=== PATIENT | male | born 1990 | race Caucasian/White ===

== ENCOUNTER 2017-07-05 09:31 | Emergency (ER) | payer BC ==
[2017-07-05 09:59] VITALS: BP 150/82
[2017-07-05] MEDS ORDERED: Albuterol/Ipratropium NEB.SOL* Albuterol 2.5 MG/Ipratropium 0.5 MG 3 ML INH ONE (10:42)
--- NOTE | 2017-07-05 10:42 | UC ---
Respiratory Complaint HPI - HPI Summary HPI Summary: quit smoking the end of May---has had cough and wheeze and sinus pressure , no fevers---has been taking Mucinex and coricedin with out relief - History of Current Complaint Chief Complaint: UCGeneralIllness Stated Complaint: CONGESTION Time Seen by Provider: 07/05/17 10:36 Hx Obtained From: Patient Onset/Duration: Gradual Onset, Lasting Weeks - 3 Timing: Constant Severity Initially: Mild Severity Currently: Moderate Character: Cough: Nonproductive Aggravating Factors: Nothing Alleviating Factors: Nothing Associated Signs And Symptoms: Positive: Wheezing, URI, Nasal Congestion, Sinus Discomfort - Allergies/Home Medications Allergies/Adverse Reactions: Allergies Allergy/AdvReac Type Severity Reaction Status Date / Time Penicillins Allergy Rash Verified 07/05/17 09:59 Sulfa Allergy Rash Uncoded 07/05/17 09:59 Home Medications: Home Medications Aspirin TAB* [Aspirin 325 MG TAB*] 2 tab PO PRN 07/05/17 [History] Torsemide [Demadex 10 MG] 1 tab PO DAILY 07/05/17 [History Confirmed 07/05/17] metFORMIN* [Glucophage 500 MG TAB *] 1 tab PO BID 07/05/17 [History Confirmed ] PMH/Surg Hx/FS Hx/Imm Hx Previously Healthy: No Endocrine History: Diabetes Cardiovascular History: Hypertension - Surgical History Surgical History: Yes Surgery Procedure, Year, and Place: 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 - Family History Known Family History: Positive: Hypertension - Social History Occupation: Employed Full-time Lives: With Family Alcohol Use: None Alcohol Amount: 2-3 beers at night Substance Use Type: None Smoking Status (MU): Former Smoker Type: Smokeless Tobacco Amount Used/How Often: FORMER SMOKER Length of Time of Smoking/Using Tobacco: 06/10/17 Have You Smoked in the Last Year: Yes - Immunization History Most Recent Tetanus Shot: Should be UTD Review of Systems Constitutional: Negative Skin: Negative Eyes: Negative ENT: Sinus Congestion, Sinus Pain/Tenderness Respiratory: Cough Cardiovascular: Negative Gastrointestinal: Negative Genitourinary: Negative Motor: Negative Neurovascular: Negative Musculoskeletal: Negative Neurological: Negative Psychological: Negative Is Patient Immunocompromised?: No All Other Systems Reviewed And Are Negative: Yes Physical Exam Triage Information Reviewed: Yes Appearance: Well-Appearing, No Pain Distress, Obese Vital Signs: Initial Vital Signs Temp 98 F 07/05/17 09:54 Pulse 76 07/05/17 09:54 Resp 20 07/05/17 09:54 BP 150/82 07/05/17 09:54 Pulse Ox 98 07/05/17 09:54 Vital Signs Reviewed: Yes Eye Exam: Normal Eyes: Positive: Conjunctiva Clear ENT Exam: Normal ENT: Positive: Normal ENT inspection, Hearing grossly normal, Pharynx normal, TMs normal, Sinus tenderness, Uvula midline. Negative: Nasal congestion, Tonsillar swelling, Tonsillar exudate, Trismus, Muffled voice, Hoarse voice, Dental tenderness Dental Exam: Normal Neck exam: Normal Neck: Positive: Supple, Nontender Respiratory Exam: Normal Respiratory: Positive: Chest non-tender, Lungs clear, Normal breath sounds, No respiratory distress, No accessory muscle use Cardiovascular Exam: Normal Cardiovascular: Positive: RRR, No Murmur, Pulses Normal, Brisk Capillary Refill Musculoskeletal Exam: Normal Musculoskeletal: Positive: Strength Intact, ROM Intact, No Edema Neurological Exam: Normal Neurological: Positive: Alert, Muscle Tone Normal Psychological Exam: Normal Skin Exam: Normal UC Diagnostic Evaluation - Laboratory O2 Sat by Pulse Oximetry: 98 Re-Evaluation - Re-Evaluation First Eval Change: Improved - chest feels less tight after neb---increase aeration Respiratory Course/Dx - Course Course Of Treatment: albuterol, flonase, zithromax, increase fluids, rest follow with pcp - Differential Dx/Diagnosis Provider Diagnoses: Acute Rhinosinusitis Discharge - Discharge Plan Condition: Stable Disposition: HOME Prescriptions: Albuterol HFA INHALER* [Ventolin HFA Inhaler*] 2 puff INH Q4H PRN #1 mdi PRN Reason: cough/wheeze Azithromycin TAB* [Zithromax TAB (Z-DANIS) 250 mg #6 tabs] 2 tab PO .TODAY, THEN 1 DAILY #1 danis Fluticasone NASAL SPRAY 50MCG* [Flonase NASAL SPRAY 50MCG*] 2 spray BOTH NARES DAILY #1 btl Patient Education Materials: Sinusitis (ED), Hypertension (ED), How to Use a Metered-Dose Inhaler and a Spacer (ED), How to Use Nasal [place] (ED) Forms: *Work Release Referrals: Paola Aguirre [Primary Care Provider] - 2 Weeks
== END 2017-07-05 11:36 | disposition home or self-care (01) ==
LOC: UCEAST 09:31
DX: J01.90 Acute sinusitis, unspecified (principal); Z87.891 Personal history of nicotine dependence; E11.9 Type 2 diabetes mellitus without complications; Z79.84 Long term (current) use of oral hypoglycemic drugs
CPT/HCPCS: 99212; A9270-GY; G0463

== ENCOUNTER 2019-10-21 08:42 | Emergency (ER) | payer SELFPAY ==
--- OUTSIDE RECORDS SUMMARY | 2019-10-21 08:51 | XMS REPORT | Continuity of Care Document ---
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 -- followed by endocrine Social History Type Date Description Comments Sex Unknown Tobacco Use Start: Unknown Current Cigarette Smoker QUIT 08/2015 BUT CHEWS 5-10 Cigarettes Daily STILL ( 1/2 CAN /DAY).12/30 1/2 PPD NOW BUT NOT CHEWING ETOH Use Denies alcohol use Tobacco Use Start: Unknown End: Patient is a former smoker QUIT IN MAY 2017 Unknown Tobacco Use Start: Unknown Chews Smoking Status Reviewed: 08/24/19 Chews Allergies, Adverse Reactions, Alerts Active Allergies Reaction Severity Comments Date Penicillins Rash 07/03/2010 Sulfa Drugs Rash 07/03/2010 Medications Active Medications SIG Qnty Indications Ordering Date Provider Esomeprazole Magnesium 1 by mouth 90caps K21.9 Paola Aguirre 04/21/2019 every day JONATHAN Johnson MS 40mg Capsules DR Clonidine HCL 1 by mouth 180tabs I10 Paola Aguirre 04/21/2019 0.2mg twice a day For JONATHAN Johnson MS Tablets BP And Anxiety Amlodipine take one 90caps I10 Paola Aguirre 01/11/2019 Besylate/Benazepril capsule by JONATHAN Johnson MSP Hydrochloride mouth every day 10-40mg Capsules Onetouch Delica Use To Test 100units R73.01 Paola Aguirre 09/22/2018 Lancets Fine 30G Once A Day JONATHAN Johnson [facility] 30G Mis E88.81 Carvedilol take one tablet by 180tabs I10 Paola Aguirre, 06/07/2018 25mg Tablets mouth twice a day RN [facility] BOX Vitamin D-3 1 by mouth every Unknown 5000Unit day Tablets Torsemide Take One-Half 30tabs I10 Paola Aguirre, 10mg Tablets Tablet By Mouth RN [facility] Every Day Immunizations CPT Code Status Date Vaccine Lot # [id number] Given 06/10/2017 Tdap (Adacel) Ages 7 And Above Only [id number] Given 07/22/2007 Afluria Or Fluvirin Flu Vac Intramuscular [id number] Given 07/22/2007 Afluria Or Fluvirin Flu Vac Intramuscular [id number] Refused 06/10/2017 Influenza Vac, Quadrivalent, Split, 0.5mL Dosage, Im Use Vital Signs Date Vital Result Comment 08/24/2019 9:27am Weight 351.00 lb Heart Rate 67 /min BP Systolic 160 mmHg BP Diastolic 85 mmHg Height 74 inches 6'2" BMI (Body Mass Index) 45.1 kg/m2 04/21/2019 9:14am Weight 352.00 lb Heart Rate 63 /min BP Systolic 153 mmHg BP Diastolic 90 mmHg Height 74 inches 6'2" BMI (Body Mass Index) 45.2 kg/m2 Results Test Acquired Date Facility Test Result H/L Range Note Laboratory test 08/24/2019 [facility] Hemoglobin A1c <pending> finding Hemoglobin A1c 04/21/2019 [facility] Hemoglobin A1c 5.7 % 4.1-5.9 Estimated Average Glucose Calc 117 mg/dL 71-140 Lipid Treatment 04/21/2019 [facility] Cholesterol 155 mg/dL 50-199 Triglycerides 78 mg/dL 30-200 HDL 36 mg/dL 29-71 1 Chol/ HDL Ratio 4.3 ratio 4.0-6.7 VLDL 16 mg/dL 2-29 LDL (Calc) 103 mg/dL High 20-99 2 Alt 24 U/L 3-42 Ast 13 U/L 8-42 Comprehensive Met Panel-[facility] 04/21/2019 [place] Sodium 139 mmol/L 135- 146 3 Potassium 4.8 mmol/L 3.5-5.2 Chloride# 101 mmol/L 97-110 4 Carbon Dioxide 31 mmol/L 24-34 Calcium 9.8 mg/dL 8.5-10.5 5 Glucose 103 mg/dL 70-105 BUN 12 mg/dL 6-26 Creatinine 0.8 mg/dL 0.5-1.4 Total Protein 7.3 g/dL 6.0-8.0 Albumin 4.4 g/dL 3.6-4.9 Globulin 2.9 g/dL 2.0-3.5 A/G Ratio 1.5 Ratio 1.0-2.2 Total Bilirubin 0.6 mg/dL 0.1-1.3 Alkaline Phosphatase 66 U/L 24-140 Alt 24 U/L 3-42 Ast 13 U/L 8-42 Anion Gap 7 mmol/L 5-15 6 Female Egfr 94 >60 7 Male Egfr 117 >60 8 1 Per NCEP ATP III Guidelines: Results lower than 40 mg/dL are suggestive of increased risk for coronary artery disease. Results > or = to 60 mg/dL are considered a negative risk factor. 2 Per NCEP ATP III Guidelines: Normal Population <130 Patients with medical conditions: CHD/DM Optimal: <100 Borderline high: 130-159 High: 160-189 Very high: >189 3 Updated reference range on new analyzer 4 Updated reference range on new analyzer 5 Updated reference range 12-15-2018 6 Updated Reference Range 7 Concerning GFR Guidelines for Americans: Normal function or mild renal disease, if clinically at risk: >/= 60 mL/min Moderately decreased: 30-59 Severely decreased: 15-29 Renal failure: <15 There is reduced accuracy above 60ml/min/1.73 m squared, but the numeric value may be clinically useful in the near 60 range 8 Concerning GFR Guidelines: Normal function or mild renal disease, if clinically at risk: >/= 60 mL/min Moderately decreased: 30-59 Severely decreased: 15-29 Renal failure: <15 There is reduced accuracy above 60ml/min/1.73 m squared, but the numeric value may be clinically useful in the near 60 range Glomerular Filtration Rate (GFR) is estimated based on the CKD-EPI equation, which assumes a steady state for creatinine as recommended by the National Kidney Disease Education Program in conjunction with the National Institutes of Health and the National Kidney Foundation. Clinical conditions in which it may be necessary to measure GFR by using clearance methods include extremes of age and body size, severe malnutrition or obesity, diseases of skeletal muscle, paraplegia or quadriplegia, vegetarian diet, rapidly changing kidney function, and calculation of the dose of potentially toxic drugs that are excreted by the kidneys. Procedures Date Code Description Status 04/21/2019 15742 Electrocardiogram Complete Completed Medical Devices Description No Information Available Encounters Type Date Location Provider Dx Diagnosis Office Visit 04/21/2019 Paola Gallegos, R73.01 Impaired fasting 9:40a RN [facility] glucose I10 Essential (primary) hypertension E78.2 Mixed hyperlipidemia E66.01 Morbid (severe) obesity due to excess calories K21.9 Gastro-esophageal reflux disease without esophagitis M25.572 Pain in LEFT ankle and joints of LEFT foot M25.512 Pain in LEFT shoulder F41.1 Generalized anxiety disorder Z68.42 Body mass index (BMI) 45.0-49.9, adult Assessments Date Code Description Provider 08/24/2019 E78.2 Mixed hyperlipidemia Paola Aguirre RN [facility] 08/24/2019 I10 Essential (primary) hypertension Paola Aguirre, JONATHAN [facility] 08/24/2019 K21.9 Gastro-esophageal reflux disease Paola Aguirre, RN [facility] without esophagitis 08/24/2019 R73.01 Impaired fasting glucose Paola Aguirre, JONATHAN [facility] 08/24/2019 Z68.42 Body mass index (BMI) 45.0-49.9, Paola Aguirre, JONATHAN [facility] adult 08/24/2019 R42 Dizziness and giddiness Paola Aguirre, JONATHAN [facility] 08/24/2019 M25.512 Pain in LEFT shoulder Paola Aguirre, JONATHAN [facility] 04/21/2019 R73.01 Impaired fasting glucose Paola Aguirre, JONATHAN [facility] 04/21/2019 I10 Essential (primary) hypertension Paola Aguirre, JONATHAN [facility] 04/21/2019 E78.2 Mixed hyperlipidemia Paola Aguirre, JONATHAN [facility] 04/21/2019 E66.01 Morbid (severe) obesity due to excess Paola Aguirre RN [facility] calories 04/21/2019 K21.9 Gastro-esophageal reflux disease Paola Aguirre RN [facility] without esophagitis 04/21/2019 M25.572 Pain in LEFT ankle and joints of LEFT Paola Aguirre RN [facility] foot 04/21/2019 M25.512 Pain in LEFT shoulder Paola Aguirre RN [facility] 04/21/2019 F41.1 Generalized anxiety disorder Paola Aguirre RN [facility] 04/21/2019 Z68.42 Body mass index (BMI) 45.0-49.9, Paola Aguirre RN [facility] adult 04/21/2019 R73.01 Impaired fasting glucose [facility] 04/21/2019 E78.2 Mixed hyperlipidemia [facility] Plan of Treatment Future Appointment(s):02/22/2020 8:00 am - Paola Aguirre RN [facility] at [facility]/24/2019 - Paola Aguirre RN [facility] FNPE78.2 Mixed [id number] Essential (primary) wemdhrqemrfcU54.9 Gastro-esophageal reflux disease without behwwkryzkfH28.01 Impaired fasting glucoseFollow up:6 MONTHS BAYLEE( FASTING ( OR CAN SCHEDULE A PE IF THAT IS COVERED BY INSURANCE ,Z68.42 Body mass index (BMI) 45.0-49.9, [id number] Dizziness and yahktxatzK57.512 Pain in LEFT shoulder Functional Status Description No Information Available Mental Status Description No Information Available Referrals Refer to Reason for Referral Status Appt Date [facility] CONSULT FOR CHRONIC LEFT LAT ANKLE Closed 04/22/2019 PAIN AND FOOT PAIN 04/21-SCHEDULED WITH [facility] WHILE IN OFFICE SO IS DEF AWARE OF APPT-AA [address] [facility] [place] [place] [address] [phone]
--- NOTE | 2019-10-21 09:43 | UC ---
Respiratory Complaint HPI - HPI Summary HPI Summary: 29 yo male presents with flu-like symptoms. He tells me that for the last 2 days he has had body aches, dry cough, fatigue, and sinus congestions. Reports temp of 103F yesterday. Has been taking mucinex and ibuprofen with good relief. Did not get a flu shot this year. He does not smoke - quit 1 year ago. Denies sore throat, SOB, chest pain, abdominal pain, n/v - History of Current Complaint Chief Complaint: UCGeneralIllness Stated Complaint: HEAD / CHEST CONGESTION COUGH Time Seen by Provider: 10/21/19 09:43 Hx Obtained From: Patient Onset/Duration: Sudden Onset Severity Initially: Mild Severity Currently: Mild Pain Intensity: 3 Pain Scale Used: 0-10 Numeric - Allergies/Home Medications Allergies/Adverse Reactions: Allergies Allergy/AdvReac Type Severity Reaction Status Date / Time Penicillins Allergy Rash Verified 10/21/19 08:54 Sulfa Allergy Rash Uncoded 10/21/19 08:54 Home Medications: Home Medications Vitamin D 1 tab PO DAILY 11/01/13 [History Confirmed 10/21/19] Amlodipine Besylate/Benazepril [Lotrel 10-40 mg Capsule] 1 tab PO BEDTIME [History Confirmed 10/21/19] Ibuprofen TAB* [Motrin TAB* 600 MG] 600 mg PO Q6H PRN #30 tab 04/01/16 [Rx Confirmed 10/21/19] Aspirin TAB* [Aspirin 325 MG TAB*] 2 tab PO PRN 07/05/17 [History] Fluticasone NASAL SPRAY 50MCG* [Flonase NASAL SPRAY 50MCG*] 2 spray BOTH NARES DAILY #1 btl 07/05/17 [Rx Confirmed 10/21/19] Carvedilol TAB* [Coreg TAB*] 1 tab PO DAILY 10/21/19 [History Confirmed 10/21/19 ] cloNIDine TAB* [Catapres 0.1 MG TAB*] 0.2 mg PO DAILY 10/21/19 [History Confirmed 10/21/19] PMH/Surg Hx/FS Hx/Imm Hx Cardiovascular History: Hypertension - Surgical History Surgical History: Yes Surgery Procedure, Year, and Place: 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 - Family History Known Family History: Positive: Hypertension - Social History Lives: With Family Alcohol Use: None Alcohol Amount: 2-3 beers at night Substance Use Type: None Smoking Status (MU): Former Smoker Type: Smokeless Tobacco Amount Used/How Often: FORMER SMOKER Length of Time of Smoking/Using Tobacco: 06/10/17 Have You Smoked in the Last Year: Yes - Immunization History Most Recent Tetanus Shot: Should be UTD Review of Systems All Other Systems Reviewed And Are Negative: No Constitutional: Positive: Fever, Fatigue, Other - Body aches Skin: Positive: Negative Eyes: Positive: Negative ENT: Positive: Sinus Congestion, Sinus Pain/Tenderness Respiratory: Positive: Cough Cardiovascular: Positive: Negative Gastrointestinal: Positive: Negative Neurovascular: Positive: Negative Neurological/Mental Status: Positive: Negative Psychological: Positive: Negative Physical Exam - Summary Physical Exam Summary: GENERAL: NAD. WDWN. No pain distress. SKIN: No rashes, sores, lesions, or open wounds. HEENT: Head: AT/NC Eyes: EOM intact. Conjunctiva clear without inflammation or discharge. Ears: Hearing grossly normal. TMs intact, no bulging, erythema, or edema. Nose: Nasal mucosa pink and moist. NTTP maxillary and frontal sinus. Throat: Posterior oropharynx without exudates, erythema, or tonsillar enlargement. Uvula midline. NECK: Supple. Nontender. No lymphadenopathy. CHEST: CTAB. No r/r/w. No accessory muscle use. Breathing comfortably and in no distress. CV: RRR. Pulses intact. Cap refill <2seconds NEURO: Alert. PSYCH: Age appropriate behavior. Triage Information Reviewed: Yes Vital Signs: Initial Vital Signs Temp 98 F 10/21/19 08:51 Pulse 91 10/21/19 08:51 Resp 17 10/21/19 08:51 BP 174/105 10/21/19 08:51 Pulse Ox 99 10/21/19 08:51 Vital Signs: Temp Pulse Resp BP Pulse Ox 98 F 91 17 142/80 99 10/21/19 08:51 10/21/19 08:51 10/21/19 08:51 10/21/19 09:59 10/21/19 08:51 Laboratory Tests 10/21/19 09:58 Influenza B (Rapid) Positive H Vital Signs Reviewed: Yes Respiratory Course/Dx - Course Course Of Treatment: POC flu positive. Advised supportive care. - Differential Dx/Diagnosis Provider Diagnosis: Influenza Discharge ED - Sign-Out/Discharge Documenting (check all that apply): Patient Departure All imaging exams completed and their final reports reviewed: No Studies - Discharge Plan Condition: Stable Disposition: HOME Patient Education Materials: Influenza (ED) Forms: *Work Release Referrals: Paola Aguirre [Primary Care Provider] - Additional Instructions: If you develop a fever, shortness of breath, chest pain, new or worsening symptoms - please call your PCP or go to the ED immediately. Your blood pressure was high at todays visit. Please see your primary provider within 4 weeks for recheck and re-evaluation. Most people with the flu recover within one to two weeks without treatment. However, serious complications of the flu can occur. Go to the ER immediately if you: -- You feel short of breath or have trouble breathing -- You have pain or pressure in your chest or stomach -- You have signs of being dehydrated, such as dizziness when standing or not passing urine -- You feel confused -- You cannot stop vomiting or you cannot drink enough fluids There are several groups of people who are at increased risk for flu complications. These include women, young children (<5 years of age and especially <2 years of age), people older than 65 years of age, and people with certain diseases such as chronic lung disease (such as asthma), heart disease, diabetes, immunosuppressing conditions (such as HIV infection or transplantation), and some other diseases. Treat symptoms Treating the symptoms of influenza can help you to feel better but will not make the flu go away faster. -- Rest until the flu is fully resolved, especially if the illness has been severe. -- Fluids Drink enough fluids so that you do not become dehydrated. One way to placing judge if you are drinking enough is to look at the color of your urine. Normally, urine should be light yellow to nearly colorless. If you are drinking enough, you should pass urine every three to five hours. -- Acetaminophen (sample brand name: Tylenol) can relieve fever, headache, and muscle aches. Aspirin and medicines that include aspirin (eg, bismuth subsalicylate [sample brand name: Pepto-Bismol]) are not recommended for children under 18 because aspirin can lead to a serious disease called Aranza syndrome. -- Cough medicines are not usually helpful; cough usually resolves without treatment. We do not recommend cough or cold medicine for children under age 6 years. Antiviral treatment Antiviral medicines can be used to treat or prevent influenza. When used as a treatment, the medicine does not eliminate flu symptoms, although it can reduce the severity and duration of symptoms by about one day. Not every person with influenza needs an antiviral medicine, but some people do; the decision is based upon several factors. If you are severely ill and/or have risk factors for developing complications of influenza, you will need an antiviral agent. People who are only mildly ill and have no risk factors for complications usually do not need to be treated with antiviral medication. - Billing Disposition and Condition Condition: STABLE Disposition: Home
[2019-10-21 09:59] VITALS: BP 142/80
[2019-10-21 10:01] LABS: Influenza B Molecular POSITIVE (Negative)
== END 2019-10-21 10:24 | disposition home or self-care (01) ==
LOC: UCEAST 08:42
DX: J11.1 Influenza due to unidentified influenza virus with other respiratory manifestations (principal); I10 Essential (primary) hypertension; Z88.0 Allergy status to penicillin; Z88.2 Allergy status to sulfonamides; Z79.899 Other long term (current) drug therapy; Z87.891 Personal history of nicotine dependence
CPT/HCPCS: 99211; G0463